=== PATIENT | male | born 1970 | race Caucasian/White ===

== ENCOUNTER 2023-03-26 05:08 | Emergency (ER) | payer OTHER, SELFPAY ==
[2023-03-26 05:10] VITALS: BP 140/93
[2023-03-26 05:31] VITALS: BMI 32.4
[2023-03-26 05:39] LABS: % Basophils 1.2 % (0-2); % Eosinophils 4.3 % (0-6); % Immature Granulocytes 0.5 % (0-0.5); % Lymphocytes 26.2 % (20.5-51.1); % Monocytes 10.4 % (1.7-9.3); % Neutrophils 57.4 % (42.2-75.2); Absolute Basophils 0.1 10^3/uL (0-0.2); Absolute Eosinophils 0.5 10^3/uL (0-0.7); Absolute Immature Granulocytes 0.1 10^3/uL (0-0.05); Absolute Monocytes 1.2 10^3/uL (0.1-0.6); Absolute Neutrophils 6.5 10^3/uL (1.4-6.5); Hematocrit 43.8 % (39.0-52.0); Hemoglobin 15.7 g/dL (13.0-18.0); Mean Corp Hgb Conc. 35.8 g/dL (33.0-37.0); Mean Corpuscular Hgb 31.3 pg (27.0-31.0); Mean Corpuscular Volume 87.4 fL (80.0-94.0); Mean Platelet Volume 8.9 fL (7.4-10.4); Nucleated Red Blood Cells % 0 % (-); Platelet Count 231 10^3/uL (130-400); Red Blood Cell Count 5.01 10^6/uL (4.70-6.10); White Blood Cell Count 11.3 10^3/uL (4.8-10.8)
[2023-03-26 06:02] LABS: ALT (SGPT) 23 U/L (0-50); AST (SGOT) 20 U/L (17-59); Albumin 4.2 g/dl (3.5-5.0); Alkaline Phosphatase 79 U/L (38-126); Blood Urea Nitrogen 27 mg/dl (9-20); Calcium 9.1 mg/dl (8.4-10.2); Carbon Dioxide 23 mmol/L (22-30); Chloride 110 mmol/L (98-107); Estimated Creatinine Clearance 60 ml/min; Glucose 99 mg/dl (70-99); Potassium 4.1 mmol/L (3.5-5.1); Sodium 139 mmol/L (135-145); Total Bilirubin 2.9 mg/dl (0.2-1.3); Total Protein 7.3 g/dl (6.3-8.2); eGFR 55.32
--- NOTE | 2023-03-26 06:04 | ED.GENMED ---
History of Present Illness
General
Chief Complaint: Flank Pain
Source: patient and spouse
Exam Limitations: none
Time Seen by Provider: 03/26/23 06:03
Nursing documentation reviewed up to this point in time: agreed with
Travel History
Have you had any contact with someone who has COVID-19?: No
Do you have any symptoms of coronavirus? Fever > 100 degrees, chills, cough, shortness of breath, sore throat, loss of taste or smell, muscle aches, or headache?: No
History of Present Illness
History of Present Illness:
53-year-old male with a past medical history of asthma who presents to the emergency department for evaluation of flank pain. Patient reports onset of symptoms a week ago�he says that he had intense flank pain for a few hours that resolved and then
2 or 3 days ago pain returned and has been waxing waning since then. He reports a sharp pain in the left flank that radiates to the left lower abdomen. No clear triggering or relieving factors noted. No associated nausea or vomiting. No diarrhea
or constipation. No dysuria, hematuria, change in urinary frequency. No fevers or chills. He says he had similar symptoms with kidney stones in the past. He says his pain improved slightly with ibuprofen at home. He says that he is a lifetime
non-smoker.
Review of Systems
Review of Systems
All Other Systems: ROS reviewed and negative except as documented in HPI and ROS
Constitutional: Denies fever or chills
Respiratory: Denies cough or trouble breathing
Cardiac: Denies chest pain or palpitations
ABD/GI: Reports abdominal pain; Denies nausea, vomiting or diarrhea
: Reports flank pain; Denies dysuria, frequency or bleeding
Musculoskeletal: Denies neck pain
Neurological: Denies dizzy, headache, weakness or numbness
Phy Exam
Physical Exam
Physical Exam:
General: Awake, alert, oriented x3; appears uncomfortable shifting in bed
Head: Normocephalic, atraumatic
Eyes: Conjunctiva normal, sclera anicteric
Throat: Airway intact, handling secretions
Neck: Trachea midline, supple without meningismus
Lungs: Clear to auscultation bilaterally, no wheezing, rales, rhonchi
Heart: Regular rate and rhythm, no murmurs, gallops, or rubs
Abd: Soft, non distended, nontender with no masses
Flank: No CVA tenderness
Neuro: Cranial nerves grossly intact, speech fluid
Skin: no rash
Extremities: No edema in extremities, equal pulses in all extremities
Scores
Heart Failure Risk
Heart Failure Risk Score: Not Applicable
Heart Score for Chest Pain Patients
STEMI patient?: Not applicable
Withdrawal Assessment of Alcohol
Withdrawal Assessment Completed?: Not applicable
Course
Orders/Labs/Results
Orders:
Orders
03/26/23 05:18
Urinalysis Reflex To Culture Urgent
Date Specimen was Collected: 03/26/23
Time Specimen was Collected: 05:19
03/26/23 05:28
Complete Blood Count/With Diff Urgent
Comprehensive Metabolic Panel Urgent
03/26/23 06:04
0.9% Sodium Chloride 1000 ml [Nss] 1,000 ml IV BOLUS
Ketorolac [Toradol] 15 mg IV NOW STA
03/26/23 06:05
CT Abd/pel Without Iv Or Oral Urgent
Comment:
Reason For Exam: flank pain
03/26/23 07:18
HYDROmorphone [Dilaudid] 1 mg IV NOW STA
Abnormal Lab Results
03/26/23
05:28
WBC 11.3 H 10^3/uL
(4.8-10.8)
MCH 31.3 H pg
(27.0-31.0)
Abs Immat Gran (auto) 0.1 H 10^3/uL
(0-0.05)
Absolute Monos (auto) 1.2 H 10^3/uL
(0.1-0.6)
Monocytes % 10.4 H %
(1.7-9.3)
Chloride 110 H mmol/L
(98-107)
BUN 27 H mg/dl
(9-20)
Creatinine 1.5 H mg/dL
(0.7-1.3)
Total Bilirubin 2.9 H mg/dl
(0.2-1.3)
03/26/23 05:28
03/26/23 05:28
Vital Signs
Initial and Last Documented VS:
Initial Vital Signs
Temp Pulse Resp BP Pulse Ox
36.7 C 75 18 140/93 98
03/26/23 05:10 03/26/23 05:10 03/26/23 05:10 03/26/23 05:10 03/26/23 05:10
Last Documented Vital Signs
Temp Pulse Resp BP Pulse Ox
36.7 C 75 17 158/99 97
03/26/23 05:10 03/26/23 06:27 03/26/23 06:27 03/26/23 06:27 03/26/23 06:27
MDM/Problems Addressed
Differential Diagnosis Includes:
Nephrolithiasis, UTI/pyelonephritis, AAA, diverticulitis
MDM/Problems Addressed:
53-year-old male presents for evaluation of flank pain waxing waning for the past week or so. Slightly improved with ibuprofen but becoming more severe and frequent. Vital signs here within acceptable range. Exam as above. Plan to place an IV
check labs including a CBC and CMP send urinalysis. Will check CT of the abdomen pelvis. Provide some fluids and pain control. Monitor closely reassess after the above. Clinical picture seems most consistent with kidney stone.
Initial labs reviewed: CBC shows marginal leukocytosis to 11.3, CMP shows creatinine of 1.5 mild GHULAM increased from baseline 0.9. IV fluids in progress. Awaiting CT results.
CT shows 5 mm stone in the proximal left ureter with moderate hydronephrosis. Patient's pain is uncontrolled with Toradol. Will dose with IV Dilaudid. Urinalysis is still pending. Will discuss case with neurology given obstructive
nephrolithiasis with GHULAM.
Clinical reassessment patient says pain very well-controlled with Dilaudid here. He is resting comfortably in bed. Discussed with urology�if pain controlled reasonable to discharge for trial of passage with pain control and Flomax. I spoke to the
patient and offered admission but he says that he strongly prefers to try and go home and do a trial of passage. Using shared decision making we will discharge as above. Spoke to him about return precautions in detail including poorly controlled
pain or worsening pain, signs or symptoms of infection or any other concerning symptoms. All questions answered.
*Radiology
Radiology exam reviewed: radiology read reviewed
*Pulse Oximetry
Patient hypoxic: no
*Critical Care Note
Total Time (30-74mins, 75-104mins- exclusive of procedures): Not Applicable
Data Reviewed
Source: patient and spouse
Patient Management
Discussion with other providers: Insect Control Aide (Discussed with urology)
Escalation/DeEscalation of care consider admission/obs:
Offered admission but patient's pain is well-controlled he prefers discharge for trial of passage
ED Attending Note
-
Portions of this chart may have been created with voice recognition software.� Occasional wrong word or��sound alike� substitutions may have occurred due to the inherent limitations of voice recognition software.
Discharge Plan
Departure
Patient Disposition: Home (Routine Discharge)
Date of Disposition: 03/26/23
Time of Disposition: 08:15
Patient with high blood pressure during this ER visit?: Yes
Discharge Problem:
Kidney stone on left side
Instructions: Kidney Stones (DC)
Prescriptions:
New
tamsulosin [Flomax] 0.4 mg capsule
0.4 mg PO DAILY Qty: 14 0RF
oxycodone 5 mg tablet
5 mg PO TID PRN (Reason: Pain) Qty: 14 0RF
No Action
fluticasone propion-salmeterol [Advair Diskus] 100-50 mcg/dose Blister With Device
1 inh INHALATION BID
Referrals:
Luis Hussein MD [Family Provider] - Call in 1-3 days for appt
Govind Harris MD [Active] - Call in 1-3 days for appt (Urology)
Activity Restrictions/Additional Instructions:
Thank you for visiting the Emergency Department at [facility].
1. Please schedule a follow up appointment as directed. Call first thing tomorrow morning to make an appointment.
2. If indicated, please take your medications as instructed and indicated on discharge paperwork.
3. If any of your symptoms do not improve, or persist, or become more severe within 6-12 hours, please return to the emergency department for further care.
4. Please return to the emergency department if you develop a headache, neck pain/stiffness, fever greater than 100.4F, chest pain, shortness of breath, persistent nausea, vomiting, slurred speech, difficulty walking, numbness/tingling, weakness,
signs of infection or any other symptoms that are worrisome to you.
Please call [phone] if you have any questions.
Interventions
Interventions:
*Risk Screen - Suicide Last Done: 03/26/23 05:12
*General Assessment Last Done: 03/26/23 05:12
*Neglect/Abuse Screening Last Done: 03/26/23 05:12
ED- Fall Risk Assessment Last Done: 03/26/23 05:15
*ED COVID-19 Vaccine History Last Done: 03/26/23 05:12
AP-Solgmd-Owemazyayz Assessment Last Done: 03/26/23 05:15
ED-Male Genitourinary Assessment Last Done: 03/26/23 05:15
[2023-03-26] MEDS: TORADOL 15 MG IV (06:22)
[2023-03-26] MEDS: NSS 1000 IV (06:25)
[2023-03-26 06:27] VITALS: BP 158/99
[2023-03-26] MEDS: DILAUDID 1 MG IV (07:19)
[2023-03-26 07:30] VITALS: BP 155/103
[2023-03-26 08:00] VITALS: BP 135/82
[2023-03-26] MEDS: FLOMAX 0.400000000000000022 MG PO (08:23)
== END 2023-03-26 08:27 | disposition home or self-care (01) ==
LOC: EMR 05:08
PROVIDERS: Emergency Medicine; EMERGENCY PHYSICIAN Emergency Medicine; FAMILY PHYSICIAN Internal Medicine
DX: N20.2 Calculus of kidney with calculus of ureter (principal); R03.0 Elevated blood-pressure reading, without diagnosis of hypertension; J45.909 Unspecified asthma, uncomplicated; Z87.442 Personal history of urinary calculi
CPT/HCPCS: 99284; 96374; 96375; 96361; 74176; 80053; 85025

== ENCOUNTER → 2023-04-22 10:37 | Outpatient (REF) | payer OTHER, SELFPAY | LOC: RAD 10:37 | PROVIDERS: ATTENDING PHYSICIAN Surgery; FAMILY PHYSICIAN Internal Medicine | DX: N13.2 Hydronephrosis with renal and ureteral calculous obstruction (principal) | CPT/HCPCS: 74018 ==

== ENCOUNTER 2023-07-06 04:06 | Emergency (ER) | payer OTHER, SELFPAY ==
[2023-07-06 04:08] VITALS: BP 130/100
[2023-07-06 04:42] LABS: % Immature Granulocytes 0.7 % (0-0.5); % Lymphocytes 17.6 % (20.5-51.1); % Monocytes 7.3 % (1.7-9.3); % Neutrophils 69.4 % (42.2-75.2); Absolute Basophils 0.1 10^3/uL (0-0.2); Absolute Eosinophils 0.6 10^3/uL (0-0.7); Absolute Immature Granulocytes 0.1 10^3/uL (0-0.05); Absolute Lymphocytes 2.5 10^3/uL (1.2-3.4); Absolute Neutrophils 9.9 10^3/uL (1.4-6.5); Hematocrit 44.1 % (39.0-52.0); Hemoglobin 16.1 g/dL (13.0-18.0); Mean Corp Hgb Conc. 36.5 g/dL (33.0-37.0); Mean Corpuscular Hgb 31.3 pg (27.0-31.0); Mean Corpuscular Volume 85.6 fL (80.0-94.0); Mean Platelet Volume 9.2 fL (7.4-10.4); Nucleated Red Blood Cells % 0 % (-); Platelet Count 246 10^3/uL (130-400); Red Blood Cell Count 5.15 10^6/uL (4.70-6.10); Red Cell Dist. Width 13.2 % (11.5-14.5); White Blood Cell Count 14.2 10^3/uL (4.8-10.8)
[2023-07-06 04:44] LABS: Urine Albumin Trace (Neg - Trace); Urine Bilirubin 1+ (Negative); Urine Character Slightly Cloudy (Clear); Urine Color Yellow; Urine Glucose Negative (Negative); Urine Ketone Trace (Negative); Urine Leukocyte Trace (Negative); Urine Nitrite Negative (Negative); Urine Occult Blood 4+ (Negative); Urine Specific Gravity 1.025 (<1.030); Urine Urobilinogen Negative (Neg - 1+)
[2023-07-06] MEDS: NSS 1000 IV (04:45)
[2023-07-06] MEDS: TORADOL 15 MG IV (04:45)
[2023-07-06] MEDS: ZOFRAN 4 MG IV (04:46)
[2023-07-06 05:06] LABS: ALT (SGPT) 31 U/L (0-50); AST (SGOT) 23 U/L (17-59); Albumin 4.5 g/dl (3.5-5.0); Alkaline Phosphatase 86 U/L (38-126); Blood Urea Nitrogen 17 mg/dl (9-20); Calcium 9.7 mg/dl (8.4-10.2); Carbon Dioxide 24 mmol/L (22-30); Chloride 109 mmol/L (98-107); Glucose 140 mg/dl (70-99); Lipase 148 U/L (23-300); Potassium 4.2 mmol/L (3.5-5.1); Sodium 140 mmol/L (135-145); Total Bilirubin 2.9 mg/dl (0.2-1.3); Total Protein 7.8 g/dl (6.3-8.2); eGFR > 60.00
[2023-07-06 05:18] VITALS: BP 148/104
--- NOTE | 2023-07-06 05:39 | ED.GENMED ---
History of Present Illness
General
Chief Complaint: Flank Pain
Source: patient and family
Exam Limitations: none
Time Seen by Provider: 07/06/23 04:55
Nursing documentation reviewed up to this point in time: agreed with
Travel History
Have you had any contact with someone who has COVID-19?: No
Do you have any symptoms of coronavirus? Fever > 100 degrees, chills, cough, shortness of breath, sore throat, loss of taste or smell, muscle aches, or headache?: No
History of Present Illness
History of Present Illness:
53-year-old male that presents with colicky pain that starts in the middle of his abdomen. He states that he feels that he has a 'kidney stone '. Took an oxycodone at 315 with some relief. Denies fever but does report nausea without vomiting.
Does report that the pain is more pronounced with movement. Patient has had a kidney stone in the past and states that this feels similar.
Past History
Past History
ED Past Medical History: Other (COVID)
Phy Exam
General Physical Exam
General Presentation: well appearing and no apparent distress
General Skin: warm and dry
General Habitus: normal
General Mental: alert
General Hydration: appears well hydrated
ENT Exam
ENT Exam: EOMI, pharynx normal, neck supple and normocephalic
Eye Exam
Eye Exam: PERRL, cornea clear and conjunctiva normal
Cardiovascular Exam
Cardiovascular Exam: regular rate/rhythm, no edema, no murmur and normal peripheral pulses
Pulmonary Exam
Pulmonary Exam: lungs clear, no respiratory distress, no rales, no crackles, no rhonchi, no stridor, no wheezing and no cough
Gastrointestinal Exam
Gastrointestinal Exam: normal bowel sounds, non tender, soft, no organomegaly, no pulsatile mass and non distended
Neurological Exam
Neurological Exam: alert, oriented x3, no motor deficits and speech normal
Musculoskeletal Exam
Musculoskeletal Exam: full ROM and no edema
Skin Exam
Skin Exam: normal color, warm/dry, no rash and no petechia
Psychiatric Exam
Psychiatric Exam: normal mood/affect
Course
Orders/Labs/Results
Orders:
Orders
07/06/23 04:30
0.9% Sodium Chloride 1000 ml [Nss] 1,000 ml IV BOLUS
Ketorolac [Toradol] 15 mg IV NOW STA
Ondansetron Injectable [Zofran] 4 mg IV NOW STA
07/06/23 04:31
CT Abd/pel Without Iv Or Oral Urgent
Comment:
Reason For Exam: flank pain
07/06/23 04:32
Complete Blood Count/With Diff Urgent
Comprehensive Metabolic Panel Urgent
Lipase Urgent
Urinalysis Reflex To Culture Urgent
Date Specimen was Collected: 07/06/23
Time Specimen was Collected: 04:31
Urine Microscopic Reflex Cult Urgent
Abnormal Lab Results
07/06/23
04:32
WBC 14.2 H 10^3/uL
(4.8-10.8)
MCH 31.3 H pg
(27.0-31.0)
Abs Immat Gran (auto) 0.1 H 10^3/uL
(0-0.05)
Absolute Neuts (auto) 9.9 H 10^3/uL
(1.4-6.5)
Absolute Monos (auto) 1.0 H 10^3/uL
(0.1-0.6)
Immature Gran % 0.7 H %
(0-0.5)
Lymphocytes % 17.6 L %
(20.5-51.1)
Chloride 109 H mmol/L
(98-107)
Glucose 140 H mg/dl
(70-99)
Total Bilirubin 2.9 H mg/dl
(0.2-1.3)
Urine Ketones Trace A
(Negative)
Ur Occult Blood Reflex 4+ A
(Negative)
Urine Bilirubin 1+ A
(Negative)
Leukocyte Esterase Rfl Trace A
(Negative)
07/06/23 04:32
07/06/23 04:32
Vital Signs
Initial and Last Documented VS:
Initial Vital Signs
Pulse Resp BP Pulse Ox
78 28 130/100 100
07/06/23 04:08 07/06/23 04:08 07/06/23 04:08 07/06/23 04:08
Last Documented Vital Signs
Pulse Resp BP Pulse Ox
80 28 148/104 100
07/06/23 05:18 07/06/23 04:08 07/06/23 05:18 07/06/23 04:08
*Critical Care Note
Total Time (30-74mins, 75-104mins- exclusive of procedures): Not Applicable
Update Note
Update Note:
Past Medical History (entered by Technologist):
Reason For Exam (entered by Technologist):
Other Notes (entered by Technologist): PT STATES 'I HAVE A KIDNEY STONE' WHEN ASKED WHERE PAIN IS HE STATES IN THE MIDDLE (POINTING TO ABDOMEN) AND MY BACK. DIFFICULT TO ELICIT WHICH SIDE.
Prior sent
Additional Information (per [facility]):
CT Abdomen and Pelvis (without IV contrast):
IMPRESSION:
Obstructing 3 mm stone within the mid left ureter with mild to moderate left hydroureteronephrosis. Additional small nonobstructing stones within the left kidney.
No bowel stranding or evidence of obstruction. Normal appendix.
The report was faxed/transmitted at 5:21 AM EST. Please call [facility] at if you would like to discuss the case or have questions.
ED Attending Note
-
Portions of this chart may have been created with voice recognition software.� Occasional wrong word or��sound alike� substitutions may have occurred due to the inherent limitations of voice recognition software.
Discharge Plan
Departure
Patient Disposition: Home (Routine Discharge)
Date of Disposition: 07/06/23
Time of Disposition: 06:05
Patient with high blood pressure during this ER visit?: Yes
Condition: Good
Discharge Problem:
Kidney stone
Instructions: Flank Pain (DC), How to Strain Your Urine, BLOOD PRESSURE
Prescriptions:
New
tamsulosin [Flomax] 0.4 mg Capsule
0.4 mg PO DAILY Qty: 7 0RF
diclofenac sodium 75 mg tablet,delayed release (DR/EC)
75 mg PO BID Qty: 10 0RF
Referrals:
Luis Hussein MD [Family Provider] -
Activity Restrictions/Additional Instructions:
It was a pleasure meeting you and taking part in your care. We hope for your continued healing and wellness.
Please read discharge instructions in their entirety. However, they are for general education and may not describe your exact diagnosis at discharge. Information on your ER visit and medical conditions were discussed with you along with appropriate
follow up information...
If indicated, please take your medications as instructed and indicated on discharge paperwork.
Please schedule a follow up appointment as directed. Call to schedule an appointment
Please return to the emergency department with ANY change in, persisting, or worsening of symptoms. If any of your symptoms do not improve, or persist, or become more severe within 6-12 hours, please return to the emergency department for further
care.
Please return to the emergency department if you develop a headache, neck pain/stiffness, fever greater than 100.4F, chest pain, shortness of breath, persistent nausea, vomiting, slurred speech, difficulty walking, numbness/tingling, weakness, signs
of infection or any other symptoms that are worrisome to you.
If you have any questions or concerns please do not hesitate to call the Hospital at or E-mail me directly at [email or web address]
Interventions
Interventions:
*Risk Screen - Suicide Last Done: 07/06/23 04:35
*General Assessment Last Done: 07/06/23 04:35
*Neglect/Abuse Screening Last Done: 07/06/23 04:35
ED- Fall Risk Assessment Last Done: 07/06/23 04:35
LM-Jyffwh-Xqksaeqpdk Assessment Last Done: 07/06/23 04:35
ED-Male Genitourinary Assessment Last Done: 07/06/23 04:35
Discharge Date and Time
Print Language: SURINAMESE
[2023-07-06 08:04] LABS: Urine Mucus Many
[2023-07-06 08:05] LABS: Urine Amorphous Seen
[2023-07-06 08:08] LABS: Urine Bacteria Few (Negative); Urine Red Blood Cell 40-50 /HPF (0-2); Urine White Cell 0-2 /HPF (0-5)
== END 2023-07-06 06:25 | disposition home or self-care (01) ==
LOC: EMR 04:06
PROVIDERS: EMERGENCY PHYSICIAN Student in an Organized Health Care Education/Training Program; FAMILY PHYSICIAN Internal Medicine
DX: N13.2 Hydronephrosis with renal and ureteral calculous obstruction (principal); R03.0 Elevated blood-pressure reading, without diagnosis of hypertension; Z87.442 Personal history of urinary calculi
CPT/HCPCS: 99284; 96374; 96375; 96361; 74176; 80053; 81003; 81015; 83690; 85025

== ENCOUNTER 2023-09-11 06:20 | Day surgery (SDC) | payer OTHER, SELFPAY ==
[2023-09-11] VITALS (8 sets, daily range): BP systolic 108–156; BP diastolic 67–107; BMI 30.6
[2023-09-11] MEDS: NORMOSOL-R 1000 IV (13:59)
[2023-09-16 08:51] LABS: Stone Analysis Mass 10 mg
== END 2023-09-11 17:18 | disposition home or self-care (01) ==
LOC: SDS 06:20
PROVIDERS: ATTENDING PHYSICIAN Surgery
DX: N13.2 Hydronephrosis with renal and ureteral calculous obstruction (principal)
CPT/HCPCS: 52356; 74018; 76000; 82365; 93005; A4300; C1758; C1769; C1894; C2617